=== PATIENT | male | born 1980 | race Asian ===

== ENCOUNTER 2021-04-29 12:10 | Emergency (ER) | payer OTHER ==
[2021-04-29 12:24] VITALS: BP 136/71
[2021-04-29] MEDS ORDERED: IBUPROFEN 600 MG TABLET PO STA (13:09)
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
== END 2021-04-29 14:52 | disposition home or self-care (01) ==
LOC: ED 12:10
DX: M54.2 Cervicalgia (principal); R20.2 Paresthesia of skin; S16.1XXA Strain of muscle, fascia and tendon at neck level, initial encounter; S39.012A Strain of muscle, fascia and tendon of lower back, initial encounter; S29.012A Strain of muscle and tendon of back wall of thorax, initial encounter; M47.818 Spondylosis without myelopathy or radiculopathy, sacral and sacrococcygeal region
CPT/HCPCS: 72050; 72070; 72114; 99283; A9270

== ENCOUNTER 2021-04-29 16:07 | Outpatient (CLI) | payer OTHER ==
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
== END 2021-04-29 16:08 | disposition home or self-care (01) ==
LOC: DI.N 16:07
PROVIDERS: ATTEND Chiropractor
DX: S16.1XXA Strain of muscle, fascia and tendon at neck level, initial encounter (principal); S39.012A Strain of muscle, fascia and tendon of lower back, initial encounter; S29.012A Strain of muscle and tendon of back wall of thorax, initial encounter; M47.818 Spondylosis without myelopathy or radiculopathy, sacral and sacrococcygeal region

== ENCOUNTER 2022-10-28 13:52 | Outpatient (CLI) | payer OTHER ==
--- NOTE | 2022-10-28 16:55 | MRI Report ---
PROCEDURE: LUMBAR SPINE WO INDICATIONS: LUMBAR RADICULOPATHY TECHNIQUE: Noncontrast sagittal T1 spin echo and T2 fast echo, sagittal STIR, axial T1 and T2 fast spin echo thr ough the lumbar spine. In cases with scoliosis, additional coronal T2 fast spin echo may be performe d. COMPARISON: Plain films dated 04/29/2021 FINDINGS: Image quality: Excellent. Alignment and Curvature: 5 lumbar type vertebral bodies are present by plain film. There is loss of n ormal lumbar lordosis. Bone Marrow: Marrow is of normal overall signal. No acute vertebral body compression fractures. Mi ld reactive signal within the endplates adjacent to the lumbar intervertebral discs. Spinal Cord: Conus medullaris terminates at the mid L2 level. Visualized cord demonstrates normal s ignal and size. Paraspinous Soft Tissues: No paravertebral masses. T12-L1: Normal in appearance. L1-L2: Normal in appearance. L2-L3: Mild facet and ligament flavum hypertrophy. Mild epidural lipomatosis. Mild diffuse disc bu lge. Mild canal stenosis. No foraminal stenosis. L3-L4: Mild disc desiccation and diffuse disc bulge. Mild facet and ligament flavum hypertrophy. Mi ld upper lipomatosis. Mild canal stenosis. Mild bilateral foraminal stenosis. L4-L5: Moderate disc desiccation. Mild diffuse disc bulge with superimposed broad-based central pro trusion. Mild facet and ligament flavum hypertrophy. Mild epidural lipomatosis. Mild canal stenosis. Moderate subarticular foraminal stenosis bilaterally. L5-S1: Moderate disc desiccation. Mild diffuse disc bulge. Right paracentral annular tear. Mild lilian ateral facet hypertrophy. No significant canal stenosis. Mild bilateral foraminal stenosis. IMPRESSION: 1. Multilevel degenerative disc and facet disease, in addition to epidural lipomatosis and ligamentum flavum hypertrophy. 2. Mild multilevel canal stenosis. 3. Multilevel foraminal stenosis, worst at L4-L5 where there are moderate foraminal stenoses. Reviewed by: Iggy Melissa MD on 10/28/2022 4:53 PM PST Approved by: Iggy Melissa MD on 10/28/2022 4:53 PM PST Station ID: [id number]
== END 2022-10-28 13:53 | disposition home or self-care (01) ==
LOC: DI 13:52
PROVIDERS: ATTEND Student in an Organized Health Care Education/Training Program
DX: M51.16 Intervertebral disc disorders with radiculopathy, lumbar region (principal); M48.061 Spinal stenosis, lumbar region without neurogenic claudication; M47.26 Other spondylosis with radiculopathy, lumbar region